=== PATIENT | female | born 1985 | race Caucasian/White ===

== ENCOUNTER 2022-07-30 08:44 | Emergency (ER) | payer OTHER ==
[~2022-07-30] VITALS: Ht 170.2 cm; Wt 83.0 kg
[2022-07-30 08:54] VITALS: BP_SYST 140
--- NOTE | 2022-07-30 09:11 | NUR ---
BROUGHT BACK TO BED #4 AND REPORT GIVEN TO GEOVANNI
--- NOTE | 2022-07-30 09:12 | NUR ---
REPORT RECEIVED, CARE ASSUMED, PT ASSESSED.
--- NOTE | 2022-07-30 09:15 | NUR ---
PT AMBULATED TO BR, URINE SPECIMEN OBTAINED AND TAKEN TO LAB
--- NOTE | 2022-07-30 09:22 | NUR ---
ER Dr. CARPENTER at bedside examining patient.
[2022-07-30] MEDS ORDERED: METOCLOPRAMIDE HCL 10 MG/2 ML VIAL IVP ONE (09:30)
[2022-07-30] MEDS ORDERED: DIPHENHYDRAMINE INJ 50 MG/ML VIAL IVP ONE (09:30)
[2022-07-30] MEDS ORDERED: KETOROLAC TROMETHAMINE 15 MG VIAL IVP ONE (09:30)
[2022-07-30] MEDS ORDERED: DICYCLOMINE HCL 10 MG/5 ML SOLUTION PO ONE (09:30)
[2022-07-30] MEDS ORDERED: NACL 0.9% 1,000 ML IV ONE (09:30)
--- NOTE | 2022-07-30 09:30 | NUR ---
# 20 gauge angiocath placed to L FA. Use of asceptic technique. Opsite placed over site. Blood return noted. Blood for lab drawn from site. Flushed with 10 cc of normal saline. No evidence of infiltration noted. Patient tolerated well.
--- NOTE | 2022-07-30 09:45 | NUR ---
IV AND PO MEDS GIVEN. PT TOLERATED WELL
[2022-07-30 10:07] LABS: CALCIUM 8.7 mg/dL (8.4-11.0); CREATININE 1.24 mg/dL (0.55-1.30); POTASSIUM 3.9 mmol/L (3.5-5.1)
[2022-07-30 10:09] LABS: EOSINOPHILS # (AUTO) 0.1 K/uL (0.0-0.4); MEAN CORPUSCULAR HEMOGLOBIN 31 pg (27-31); MONOCYTES # (AUTO) 0.6 K/uL (0.0-1.0)
[2022-07-30 10:11] LABS: ALBUMIN 4.6 g/dL (3.4-4.8); TOTAL BILIRUBIN 0.4 mg/dL (0.0-1.0)
[2022-07-30 10:14] LABS: BILIRUBIN,URINE NEGATIVE (NEGATIVE); CLARITY/URINE SL CLOUDY (CLEAR); COLOR,URINE YELLOW (YELLOW); GLUCOSE,URINE NEGATIVE (NEGATIVE); KETONES,URINE NEGATIVE (NEGATIVE); LEUKOCYTE ESTERASE ,URINE NEGATIVE (NEGATIVE); NITRITE, URINE NEGATIVE (NEGATIVE); PH,URINE 5.5 (5.0-8.0); PROTEIN URINE 1+ (NEGATIVE); UROBILINOGEN,URINE 0.2 (0.2-1.0)
[2022-07-30 10:17] LABS: BASOPHILS # (AUTO) 0.1 K/uL (0.0-0.2); BASOPHILS % (AUTO) 0.5 % (0.0-2.0); EOSINOPHILS % (AUTO) 0.6 % (0.0-4.0); HEMATOCRIT 47.6 % (36-48); HEMOGLOBIN 16.7 g/dL (12.0-16.0); LYMPHOCYTES # (AUTO) 1.3 K/uL (1.0-5.5); LYMPHOCYTES % (AUTO) 12.2 % (20.5-51.5); MEAN CORPUSCULAR HGB CONC 35 % (32-36); MEAN CORPUSCULAR VOLUME 89 fL (79.0-98.0); MONOCYTES % (AUTO) 5.7 % (1.7-9.3); NEUTROPHILS # (AUTO) 8.5 K/uL (1.8-7.7); PLATELET COUNT (AUTO) 334 K/uL (130-430); RED BLOOD CELL COUNT(AUTO) 5.36 MIL/uL (4.2-6.2); RED CELL DISTRIBUTION WIDTH 12.9 % (9.0-15.0); WHITE BLOOD COUNT (AUTO) 10.5 K/uL (4.8-10.8)
[2022-07-30 10:18] LABS: BLOOD, URINE TRACE (NEGATIVE)
--- NOTE | 2022-07-30 10:28 | NUR ---
CONSENT SIGNED FOR CT WITH CONTRAST, RAD NOTIFIED
[2022-07-30 10:32] LABS: BACTERIA,URINE FEW /HPF (None Seen); HYALINE CASTS, URINE 0-10 /LPF (None Seen); WBC,URINE 0-3 /HPF (0-3)
--- NOTE | 2022-07-30 10:35 | NUR ---
PT TO CT VIA STRETCHER
[2022-07-30] MEDS ORDERED: DICY10CA13 PO (11:40)
[2022-07-30] MEDS ORDERED: CEPH-548 PO (11:40)
[2022-07-30] MEDS ORDERED: METO-290 PO (11:40)
[2022-07-30 11:57] VITALS: BP_SYST 116
--- NOTE | 2022-07-30 11:59 | NUR ---
Patient given written and verbal discharge instructions and verbalizes understanding. ER MD discussed with patient the results and treatment provided. Patient in stable condition. ID arm band removed. IV catheter removed intact and dressing applied, no active bleeding. Rx of X3 MEDS given. Patient educated on pain management and to follow up with PMD. Pain Scale 0. Opportunity for questions provided and answered. Medication side effect fact sheet provided.
== END 2022-07-30 11:59 | disposition home or self-care (01) ==
LOC: SED 08:44
DX: N30.01 Acute cystitis with hematuria (principal); R10.33 Periumbilical pain; R11.0 Nausea; R30.0 Dysuria; I10 Essential (primary) hypertension; F17.200 Nicotine dependence, unspecified, uncomplicated; F12.90 Cannabis use, unspecified, uncomplicated; Z79.899 Other long term (current) drug therapy
CPT/HCPCS: 99285; 74177; 96374; 96375; 96361; 80053; 81000; 83690; 85025; 36415; 76376; J1200; J1885; J2765; Q9967; J7030

== ENCOUNTER 2022-08-01 11:36 | Emergency (ER) | payer OTHER ==
[~2022-08-01] VITALS: Ht 170.2 cm; Wt 82.1 kg
[~2022-08-01 11:36] MED LIST: CEPH-548 PO; DICY10CA13 PO; METO-290 PO
[2022-08-01 11:43] VITALS: BP_SYST 143
--- NOTE | 2022-08-01 11:48 | NUR ---
Patient triaged and placed in waiting room. VSS and patient appears in no acute distress at this time. Accompanied by , awaiting available bed, and MD notified of need for MSE.
--- NOTE | 2022-08-01 12:20 | NUR ---
ER DR. MILLS EXAMINING PT
[2022-08-01 12:48] LABS: BASOPHILS # (AUTO) 0.1 K/uL (0.0-0.2); BASOPHILS % (AUTO) 0.5 % (0.0-2.0); EOSINOPHILS % (AUTO) 0.4 % (0.0-4.0); HEMATOCRIT 50.9 % (36-48); HEMOGLOBIN 17.9 g/dL (12.0-16.0); LYMPHOCYTES # (AUTO) 1.8 K/uL (1.0-5.5); LYMPHOCYTES % (AUTO) 15.1 % (20.5-51.5); MEAN CORPUSCULAR HEMOGLOBIN 31 pg (27-31); MEAN CORPUSCULAR HGB CONC 35 % (32-36); MEAN CORPUSCULAR VOLUME 89 fL (79.0-98.0); MONOCYTES # (AUTO) 0.7 K/uL (0.0-1.0); NEUTROPHILS # (AUTO) 9.2 K/uL (1.8-7.7); PLATELET COUNT (AUTO) 356 K/uL (130-430); RED BLOOD CELL COUNT(AUTO) 5.72 MIL/uL (4.2-6.2); RED CELL DISTRIBUTION WIDTH 13.2 % (9.0-15.0); WHITE BLOOD COUNT (AUTO) 11.7 K/uL (4.8-10.8)
[2022-08-01 13:00] LABS: BILIRUBIN,URINE NEGATIVE (NEGATIVE); CLARITY/URINE CLEAR (CLEAR); COLOR,URINE YELLOW (YELLOW); GLUCOSE,URINE NEGATIVE (NEGATIVE); KETONES,URINE NEGATIVE (NEGATIVE); LEUKOCYTE ESTERASE ,URINE NEGATIVE (NEGATIVE); NITRITE, URINE NEGATIVE (NEGATIVE); PROTEIN URINE NEGATIVE (NEGATIVE); UROBILINOGEN,URINE 0.2 (0.2-1.0)
[2022-08-01 13:14] LABS: BLOOD, URINE TRACE (NEGATIVE)
[2022-08-01 13:15] LABS: ANION GAP 7 (5-15); CALCIUM 10.1 mg/dL (8.4-11.0); CHLORIDE 101 mmol/L (98-107); CREATININE 1.15 mg/dL (0.55-1.30); GLUCOSE 102 mg/dL (70-99); POTASSIUM 3.7 mmol/L (3.5-5.1); UREA NITROGEN, BLOOD 10 mg/dL (8-21)
[2022-08-01 13:20] LABS: BACTERIA,URINE RARE /HPF (None Seen); RBC,URINE 0-3 /HPF (0-3); WBC,URINE NONE SEEN /HPF (0-3)
[2022-08-01 13:23] LABS: ALANINE AMINOTRANSFERASE 75 U/L (12-78); AMYLASE 87 U/L (0-100); ASPARTATE AMINOTRANSFERASE 36 U/L (10-37); LIPASE 117 U/L (73-393); TOTAL BILIRUBIN 0.3 mg/dL (0.0-1.0)
[2022-08-01 13:24] LABS: GFR AFRICAN AMERICAN 68 mL/min (>90)
[2022-08-01 13:25] LABS: C-REACTIVE PROTEIN QUANT < 0.2 mg/dL (0-0.5)
--- NOTE | 2022-08-01 15:05 | NUR ---
PT WAS PUT ON BED 5. DR. MILLS WENT TO BEDSIDE AND TALKED WITH PT AGAIN.
[2022-08-01] MEDS ORDERED: NITR-85 PO (15:08)
[2022-08-01] MEDS ORDERED: cefTRIAXone 1 GM in LIDOCAINE 1%, 20 ML MDV 2.1 ML IM ONE (15:15)
--- NOTE | 2022-08-01 15:44 | NUR ---
Patient given written and verbal discharge instructions and verbalizes understanding. ER MD discussed with patient the results and treatment provided. Patient in stable condition. ID arm band removed. Rx of NITROFURANTOIN/NITROFURAN given. Patient educated on pain management and to follow up with PMD. Pain Scale 1. Opportunity for questions provided and answered. Medication side effect fact sheet provided.
[2022-08-01 15:47] VITALS: BP_SYST 134
== END 2022-08-01 15:47 | disposition home or self-care (01) ==
LOC: SED 11:36
DX: N39.0 Urinary tract infection, site not specified (principal); R10.9 Unspecified abdominal pain; R11.2 Nausea with vomiting, unspecified; Z79.899 Other long term (current) drug therapy
CPT/HCPCS: 99284; 80053; 81000; 82150; 84703; 83690; 85025; 86140; 84484; 36415; 74018; 81025; 96372; 83605; J0696; J2001

== ENCOUNTER 2022-08-03 13:59 | Emergency (ER) | payer OTHER ==
[~2022-08-03] VITALS: Ht 170.2 cm; Wt 77.1 kg
[~2022-08-03 13:59] MED LIST changes: +NITR-85 PO
[2022-08-03 14:00] VITALS: BP_SYST 124
--- NOTE | 2022-08-03 14:00 | NUR ---
Patient triaged and placed in waiting room. VSS and patient appears in no acute distress at this time. Accompanied by FAMILY, awaiting available bed, and MD notified of need for MSE.
--- NOTE | 2022-08-03 14:03 | NUR ---
ER DR. MILLS EXAMINING PT IN TRIAGE
[2022-08-03 14:28] LABS: HEMOGLOBIN 17.5 g/dL (12.0-16.0); LYMPHOCYTES # (AUTO) 1.6 K/uL (1.0-5.5)
[2022-08-03 14:37] LABS: WHITE BLOOD COUNT (AUTO) 12.5 K/uL (4.8-10.8)
[2022-08-03 14:38] LABS: ANION GAP 7 (5-15); BASOPHILS % (AUTO) 1.2 % (0.0-2.0); CALCIUM 9.1 mg/dL (8.4-11.0); CHLORIDE 103 mmol/L (98-107); CREATININE 1.28 mg/dL (0.55-1.30); EOSINOPHILS % (AUTO) 0.4 % (0.0-4.0); GLUCOSE 112 mg/dL (70-99); HEMATOCRIT 50.1 % (36-48); LYMPHOCYTES % (AUTO) 12.7 % (20.5-51.5); MEAN CORPUSCULAR HEMOGLOBIN 31 pg (27-31); MEAN CORPUSCULAR HGB CONC 35 % (32-36); MEAN CORPUSCULAR VOLUME 89 fL (79.0-98.0); MONOCYTES # (AUTO) 0.8 K/uL (0.0-1.0); MONOCYTES % (AUTO) 6.2 % (1.7-9.3); NEUTROPHILS # (AUTO) 9.9 K/uL (1.8-7.7); NEUTROPHILS % (AUTO) 79.5 % (40.0-70.0); PLATELET COUNT (AUTO) 357 K/uL (130-430); POTASSIUM 3.9 mmol/L (3.5-5.1); RED BLOOD CELL COUNT(AUTO) 5.61 MIL/uL (4.2-6.2); RED CELL DISTRIBUTION WIDTH 13.1 % (9.0-15.0); UREA NITROGEN, BLOOD 9 mg/dL (8-21)
[2022-08-03 14:39] LABS: BASOPHILS # (AUTO) 0.2 K/uL (0.0-0.2)
[2022-08-03 14:40] LABS: GFR AFRICAN AMERICAN 60 mL/min (>90)
[2022-08-03 14:42] LABS: ALANINE AMINOTRANSFERASE 86 U/L (12-78); AMYLASE 88 U/L (0-100); ASPARTATE AMINOTRANSFERASE 46 U/L (10-37); LIPASE 123 U/L (73-393); TOTAL BILIRUBIN 0.5 mg/dL (0.0-1.0)
[2022-08-03 14:43] LABS: C-REACTIVE PROTEIN QUANT < 0.2 mg/dL (0-0.5)
[2022-08-03 15:05] LABS: ACETONE, SERUM NEGATIVE (NEGATIVE)
[2022-08-03] MEDS ORDERED: IBUP-1969 PO (15:23)
[2022-08-03] MEDS ORDERED: HYDR-3917 PO (15:23)
[2022-08-03] MEDS ORDERED: ONDA-8 TL (15:25)
[2022-08-03 16:00] LABS: BILIRUBIN,URINE NEGATIVE (NEGATIVE); CLARITY/URINE CLEAR (CLEAR); COLOR,URINE YELLOW (YELLOW); GLUCOSE,URINE NEGATIVE (NEGATIVE); KETONES,URINE 2+ (NEGATIVE); LEUKOCYTE ESTERASE ,URINE NEGATIVE (NEGATIVE); NITRITE, URINE NEGATIVE (NEGATIVE); PH,URINE 5.5 (5.0-8.0); PROTEIN URINE TRACE (NEGATIVE); UROBILINOGEN,URINE 0.2 (0.2-1.0)
[2022-08-03 16:13] LABS: BLOOD, URINE TRACE (NEGATIVE)
[2022-08-03 16:14] LABS: BACTERIA,URINE FEW /HPF (None Seen); MUCUS,URINE 1+ /LPF (None Seen); RBC,URINE 0-3 /HPF (0-3); WBC,URINE 0-3 /HPF (0-3)
[2022-08-03 16:17] VITALS: BP_SYST 121
--- NOTE | 2022-08-03 16:17 | NUR ---
Patient given written and verbal discharge instructions and verbalizes understanding. ER MD discussed with patient the results and treatment provided. Patient in stable condition. ID arm band removed. Rx of NORCO, IBUPROFEN AND ZOFRAN given. Patient educated on pain management and to follow up with PMD. Pain Scale 0/10. Opportunity for questions provided and answered. Medication side effect fact sheet provided.
== END 2022-08-03 16:17 | disposition home or self-care (01) ==
LOC: SED 13:59
DX: R10.11 Right upper quadrant pain (principal); Z79.899 Other long term (current) drug therapy
CPT/HCPCS: 36415; 80053; 81000; 81025; 82009; 82150; 83605; 83690; 84703; 85025; 86140; 99283

== ENCOUNTER 2023-07-12 14:37 | Emergency (ER) | payer OTHER ==
[~2023-07-12] VITALS: Ht 172.7 cm; Wt 89.8 kg
[~2023-07-12 14:37] MED LIST changes: +DICY-14 PO; -DICY10CA13 PO; +HYDR-3917 PO; +IBUP-1969 PO; +ONDA-8 TL
[2023-07-12 14:43] VITALS: BP_SYST 161; PULSE 128; RESP 18; TEMP 97.5; O2SAT 97
[2023-07-12 21:32] LABS: BILIRUBIN,URINE NEGATIVE (NEGATIVE); BLOOD, URINE NEGATIVE (NEGATIVE); CLARITY/URINE CLEAR (CLEAR); COLOR,URINE YELLOW (YELLOW); GLUCOSE,URINE NEGATIVE (NEGATIVE); KETONES,URINE NEGATIVE (NEGATIVE); LEUKOCYTE ESTERASE ,URINE NEGATIVE (NEGATIVE); NITRITE, URINE NEGATIVE (NEGATIVE); PROTEIN URINE NEGATIVE (NEGATIVE); UROBILINOGEN,URINE 0.2 (0.2-1.0)
[2023-07-12 22:01] LABS: BASOPHILS # (AUTO) 0.1 K/uL (0.0-0.2); BASOPHILS % (AUTO) 0.4 % (0.0-2.0); EOSINOPHILS # (AUTO) 0.1 K/uL (0.0-0.4); EOSINOPHILS % (AUTO) 0.8 % (0.0-4.0); HEMATOCRIT 51.4 % (36-48); HEMOGLOBIN 17.2 g/dL (12.0-16.0); LYMPHOCYTES # (AUTO) 2.9 K/uL (1.0-5.5); LYMPHOCYTES % (AUTO) 22.5 % (20.5-51.5); MEAN CORPUSCULAR HEMOGLOBIN 31 pg (27-31); MEAN CORPUSCULAR HGB CONC 34 % (32-36); MEAN CORPUSCULAR VOLUME 92 fL (79.0-98.0); MONOCYTES # (AUTO) 1.2 K/uL (0.0-1.0); MONOCYTES % (AUTO) 9.5 % (1.7-9.3); NEUTROPHILS # (AUTO) 8.5 K/uL (1.8-7.7); NEUTROPHILS % (AUTO) 66.8 % (40.0-70.0); PLATELET COUNT (AUTO) 373 K/uL (130-430); RED BLOOD CELL COUNT(AUTO) 5.59 MIL/uL (4.2-6.2); RED CELL DISTRIBUTION WIDTH 13.4 % (9.0-15.0); WHITE BLOOD COUNT (AUTO) 12.7 K/uL (4.8-10.8)
[2023-07-12 22:15] LABS: CALCIUM 8.8 mg/dL (8.4-11.0); CREATININE 1.04 mg/dL (0.55-1.30); POTASSIUM 3.5 mmol/L (3.5-5.1)
[2023-07-12 22:19] LABS: ALBUMIN 4.2 g/dL (3.4-4.8); TOTAL BILIRUBIN 0.5 mg/dL (0.0-1.0)
[2023-07-13 00:14] VITALS: BP_SYST 138; PULSE 100; RESP 20; TEMP 98.1; O2SAT 98
== END 2023-07-13 00:14 | disposition home or self-care (01) ==
LOC: SED 14:37
DX: R20.2 Paresthesia of skin (principal); R51.9 Headache, unspecified; I10 Essential (primary) hypertension; Z79.899 Other long term (current) drug therapy
CPT/HCPCS: 36415; 70450-TC; 76376; 80053; 81003; 81025; 85025; 85379; 99284